=== PATIENT | female | born 1965 | race Caucasian/White ===

== ENCOUNTER → 2017-03-18 | Outpatient (CLI) | payer OTHER | LOC: BMCIMAGING 12:29 | PROVIDERS: ATTEND Obstetrics & Gynecology Gynecology | DX: Z12.31 Encounter for screening mammogram for malignant neoplasm of breast (principal) | CPT/HCPCS: G0202 ==

== ENCOUNTER 2017-03-23 12:05 | Observation (INO) | payer OTHER ==
[2017-03-23 12:10] VITALS: RESP 16
--- NOTE | 2017-03-23 12:18 | EDPHY ---
H & P Time Seen by Provider: 03/23/17 12:13 HPI/ROS: CHIEF COMPLAINT: Chest pain HISTORY OF PRESENT ILLNESS: This 51-year-old woman had cardiac stenting in her LAD 10 years ago in [place] and she described very severe chest pain at that time like "Maya March sitting on my chest." Over the past month she has been having intermittent central chest heaviness and is associated with heart pounding and feeling like when she bends over she short of breath. She does feel that it is better when she walks or when she exerts herself. It is often present in the middle of the night, and is worse in severity and frequency over the past week. REVIEW OF SYSTEMS: Eye: no change in vision ENT: no sore throat Cardiac: HPI Pulmonary: No coughing or hemoptysis Abdomen: no vomiting, diarrhea, abdominal pain Musculoskeletal: no back pain or leg pain or recent travel or immobilization Skin: no rash Neuro: no headache Constitutional: no fever : no urinary symptoms A comprehensive 10 point review of systems is otherwise negative aside from elements mentioned in the history of present illness. PAST MEDICAL HISTORY: Coronary disease as above with stenting 10 years ago and thyroid disease Social history: Nonsmoker, no recent travel General Appearance: Alert and conversant, cooperative. Eyes: No scleral icterus. ENT, Mouth: Normal mucous membranes. Respiratory: Normal respiratory effort, breath sounds equal, lungs are clear to auscultation. Cardiovascular: Regular rate and rhythm. Gastrointestinal: Abdomen is soft and non tender. Neurological: Alert and oriented x3. Normally conversant. Face symmetric, normal movement and sensation in all extremities. Skin: Warm and dry, no rashes. Musculoskeletal: No peripheral edema and no joint swelling. No calf tenderness Psychiatric: Not agitated. Emergency Department course/MDM: Patient initially went to her primary care physician's office and Dr. Zaragoza then spoke with Cardiology who advised her to come to the emergency department. Oral aspirin, EKG chest x-ray and troponin, D-dimer, cardiology consultation. 1330: Troponin D-dimer negative, Sury from Cardiology here to see and evaluate. 1412: Admission to Cardiology service for further evaluation and risk stratification per Dr. Ga. Smoking Status: Never smoked Constitutional: Initial Vital Signs Temperature (C) 36.3 C 03/23/17 12:08 Heart Rate 72 03/23/17 12:08 Respiratory Rate 16 03/23/17 12:08 Blood Pressure 117/88 H 03/23/17 12:08 O2 Sat (%) 98 03/23/17 12:08 O2 Delivery Mode Room Air Allergies/Adverse Reactions: Penicillins Allergy (Verified 03/23/17 12:07) tetracycline Allergy (Verified 03/23/17 12:07) Home Medications: Medication Instructions Recorded Aspirin 325 mg (*) 03/23/17 Synthroid 03/23/17 Medical Decision Making - Diagnostics Imaging Results: Imaging Impressions Chest X-Ray 03/23/17 12:25 Impression: No evidence of acute cardiopulmonary abnormality. Differential Diagnosis: Differential diagnosis considered for chest pain including but not limited to myocardial ischemia, aortic dissection, pericarditis, pulmonary embolus, chest wall pain, pleural inflammation and pulmonary infectious causes. - Data Points Laboratory Results: Laboratory Results 03/23/17 12:27 03/23/17 12:27 03/23/17 03/23/17 03/23/17 12:27 12:27 12:22 WBC 6.46 10^3/uL 10^3/uL (3.80-9.50) RBC 5.24 10^6/uL 10^6/uL (4.18-5.33) Hgb 15.3 g/dL g/dL (12.6-16.3) Hct 45.7 % % (38.0-47.0) MCV 87.2 fL fL (81.5-99.8) MCH 29.2 pg pg (27.9-34.1) MCHC 33.5 g/dL g/dL (32.4-36.7) RDW 13.2 % % (11.5-15.2) Plt Count 219 10^3/uL 10^3/uL (150-400) MPV 10.6 fL fL (8.7-11.7) Neut % (Auto) 55.0 % % (39.3-74.2) Lymph % (Auto) 36.8 % % (15.0-45.0) [place] % (Auto) 7.0 % % (4.5-13.0) Eos % (Auto) 0.6 % % (0.6-7.6) Baso % (Auto) 0.3 % % (0.3-1.7) Nucleat RBC Rel Count 0.0 % % (0.0-0.2) Absolute Neuts (auto) 3.55 10^3/uL 10^3/uL (1.70-6.50) Absolute Lymphs (auto) 2.38 10^3/uL 10^3/uL (1.00-3.00) Absolute Monos (auto) 0.45 10^3/uL 10^3/uL (0.30-0.80) Absolute Eos (auto) 0.04 10^3/uL 10^3/uL (0.03-0.40) Absolute Basos (auto) 0.02 10^3/uL 10^3/uL (0.02-0.10) Absolute Nucleated RBC 0.00 10^3/uL 10^3/uL (0-0.01) Immature Gran % 0.3 % % (0.0-1.1) Immature Gran # 0.02 10^3/uL 10^3/uL (0.00-0.10) D-Dimer < 0.27 ug/mLFEU ug/mLFEU (0.00-0.50) Sodium 140 mEq/L mEq/L (134-144) Potassium 3.9 mEq/L mEq/L (3.5-5.2) Chloride 105 mEq/L mEq/L (97-110) Carbon Dioxide 24 mEq/l mEq/l (22-31) Anion Gap 11 mEq/L mEq/L (8-16) BUN 12 mg/dL mg/dL (7-23) Creatinine 0.6 mg/dL mg/dL (0.6-1.0) Estimated GFR > 60 Glucose 86 mg/dL mg/dL (70-100) Calcium 9.8 mg/dL mg/dL (8.5-10.4) Troponin I < 0.012 ng/mL ng/mL (0-0.034) Medications Given: Discontinued Medications Aspirin (Aspirin) 324 mg PO EDNOW ONE Stop: 03/23/17 12:26 Last Admin: 03/23/17 12:33 Dose: 324 mg Departure - Departure Disposition: [facility] Inpatient Acute Clinical Impression: Chest pain Qualifiers: Chest pain type: unspecified Qualified Code(s): R07.9 - Chest pain, unspecified Condition: Good Instructions: Chest Pain (ED) Referrals: Hellen Zaragoza MD [Primary Care Provider] - As per Instructions Josh Ga MD [Medical Doctor] - As per Instructions
[2017-03-23] MEDS ORDERED: ASPIRIN 81 MG CHEWABLE TAB PO ONE (12:25)
--- NOTE | 2017-03-23 12:28 | CPEKG ---
Heart Rate: 69 RR Interval: 870 P-R Interval: 160 QRSD Interval: 70 QT Interval: 428 QTC Interval: 459 P [place]: 60 QRS [place]: 54 T Wave [place]: 42 EKG Severity - NORMAL ECG - EKG Impression: SINUS RHYTHM Electronically Signed By: Darien Edwards 23-Mar-2017 14:13:34
[2017-03-23 12:36] LABS: % IMMATURE GRANULYOCYTES 0.3 % (0.0-1.1); ABSOLUTE IMMATURE GRANULOCYTES 0.02 10^3/uL (0.00-0.10); ADD DIFF? NO; ADD MORPH? NO; ADD SCAN? NO; ATYPICAL LYMPHOCYTE FLAG 10 (0-99); FRAGMENT RBC FLAG 0 (0-99); HEMATOCRIT 45.7 % (38.0-47.0); HEMOGLOBIN 15.3 g/dL (12.6-16.3); LEFT SHIFT FLG 0 (0-99); LIPEMIA HEMOLYSIS FLAG 80 (0-99); MEAN CELL HEMOGLOBIN 29.2 pg (27.9-34.1); MEAN CELL HEMOGLOBIN CONCENTR. 33.5 g/dL (32.4-36.7); MEAN CELL VOLUME 87.2 fL (81.5-99.8); MEAN PLATELET VOLUME 10.6 fL (8.7-11.7); PLATELET CLUMPS FLAG 0 (0-99); PLATELET COUNT 219 10^3/uL (150-400); RED BLOOD CELL COUNT 5.24 10^6/uL (4.18-5.33); RED CELL DISTRIBUTION WIDTH 13.2 % (11.5-15.2)
[2017-03-23 12:55] LABS: ANION GAP 11 mEq/L (8-16); CALCIUM 9.8 mg/dL (8.5-10.4); CARBON DIOXIDE 24 mEq/l (22-31); CHLORIDE 105 mEq/L (97-110); CREATININE 0.6 mg/dL (0.6-1.0); GLOMERULAR FILTRATION RATE > 60; GLUCOSE 86 mg/dL (70-100); POTASSIUM 3.9 mEq/L (3.5-5.2); SODIUM 140 mEq/L (134-144)
[2017-03-23 13:07] LABS: TROPONIN I < 0.012 ng/mL (0-0.034)
--- NOTE | 2017-03-23 16:16 | GCON ---
[f rep st] CONSULTATION DATE OF CONSULTATION: 03/23/2017 CHIEF COMPLAINT: We have been asked by Dr. Edwards to evaluate this patient with a chief complaint of chest pain. HISTORY OF PRESENTING ILLNESS: The patient is a 51-year-old female with known coronary artery disea se who presents with a chief complaint of chest pain. The patient was in her usual state of health until several weeks prior to admission, when she began to experience chest pain. The chest pain is described as an emptiness in the center of her chest. It does not radiate and is not associated wit h nausea, vomiting, or diaphoresis. The patient has noted symptoms of shortness of breath when she bends over, but the shortness of breath is not clearly associated with the chest discomfort. The ch est discomfort tends to be most notable at night or when she is resting. She has not noted symptoms with eating or exertion. The patient does have a previous history of coronary artery disease and i s status post stenting of her left anterior descending coronary artery approximately 10 years ago. Her symptoms with that episode were described as a pressure in the center of her chest. The patient stated it was like Suzan March sitting on her chest. The chest discomfort was brought on with e xertion and relieved with rest. There is no history of orthopnea or PND. The patient does report i ntermittent palpitations. PAST MEDICAL HISTORY: 1. Coronary artery disease. 2. Hyperlipidemia. 3. Hypothyroidism. MEDICATIONS: 1. Aspirin. 2. Synthroid. 3. The patient reports stopping her statin several months ago. ALLERGIES: 1. Penicillin. 2. Tetracycline. SOCIAL HISTORY: The patient is from [place]. She moved to [place]. She does not smoke. FAMILY HISTORY: Noncontributory. REVIEW OF SYSTEMS: A 10-point review of systems is negative, except as noted in HPI. PHYSICAL EXAMINATION: GENERAL: Patient is resting comfortably in bed at this time. She does not a ppear to be in acute distress. VITAL SIGNS: Temperature is afebrile. Pulse is 58, blood pressure 130/71, respiratory rate is 16, SaO2 is 94% on room air. HEENT: Normocephalic, atraumatic. Extrao cular muscles intact. NECK: No JVD. No bruits. LUNGS: Clear to auscultation bilaterally. CARDI OVASCULAR: Regular rate and rhythm, S1, S2. Grade 2/6 holosystolic murmur is noted at the left ed rnal border. ABDOMEN: Soft, nontender. Normoactive bowel sounds. No hepatosplenomegaly. EXTREMI TIES: No clubbing, cyanosis, or edema. SKIN: No evidence of rashes. NEURO: Patient is awake, al ert, and oriented x3. LABORATORY: White blood cell count is 6.46, hemoglobin 15.3, hematocrit 45.7, platelet count 219. Sodium 140, potassium 3.9, chloride 105, CO2 24, BUN 12, creatinine 0.6. Troponin within normal clark its x1. D-dimer is less than 0.27. Chest x-ray demonstrates no acute cardiopulmonary disease. EKG demonstrates sinus rhythm, normal axis, normal intervals, no acute ST or T-wave changes. ASSESSMENT AND PLAN: The patient is a 51-year-old female with: 1. Chest pain. The patient presents with a chest pain syndrome. Some features are suggestive of h er previous angina, while others are not. She is currently pain-free at this time. Her EKG demonst rates no acute ST or T-wave changes. Her initial troponin is within normal limits. Reviewed option s for risk stratification including an early invasive strategy as well as a more conservative approa ch. Patient wishes to pursue the conservative approach at this time. We will admit the patient to the hospital and start on heparin. We will plan on cycling cardiac enzymes and EKGs. If the patien t remains pain-free and biomarkers are unremarkable, we will proceed with stress testing in the [facility] ing. 2. Coronary artery disease. Patient has known coronary artery disease. She is status post stentin g of her left anterior descending coronary artery approximately 10 years previously. She is current ly on medical management with aspirin therapy. We will also initiate beta-scotty therapy with Core g 3.125 mg twice daily, and consider resuming statin as noted below. 3. Hyperlipidemia. Patient does have a history of hyperlipidemia. She was previously on statin th . She recently discontinued this. We will plan on obtaining FLP and LFTs for risk stratificat ion. However, would favor starting statin therapy. /[id number]/MODL
[2017-03-23] MEDS: CARVEDILOL 3.125 MG TAB PO SCH (17:16)
[2017-03-23] MEDS ORDERED: CARVEDILOL 3.125 MG TAB PO SCH (18:00)
[2017-03-23] MEDS: ENOXAPARIN 60 MG/0.6 ML SYR SC SCH (22:03)
[2017-03-24 04:35] LABS: % IMMATURE GRANULYOCYTES 0.4 % (0.0-1.1); ABSOLUTE IMMATURE GRANULOCYTES 0.02 10^3/uL (0.00-0.10); ADD DIFF? NO; ADD MORPH? NO; ADD SCAN? NO; ATYPICAL LYMPHOCYTE FLAG 10 (0-99); FRAGMENT RBC FLAG 0 (0-99); HEMATOCRIT 41.7 % (38.0-47.0); HEMOGLOBIN 13.8 g/dL (12.6-16.3); LEFT SHIFT FLG 0 (0-99); LIPEMIA HEMOLYSIS FLAG 80 (0-99); MEAN CELL HEMOGLOBIN 29.2 pg (27.9-34.1); MEAN CELL HEMOGLOBIN CONCENTR. 33.1 g/dL (32.4-36.7); MEAN CELL VOLUME 88.2 fL (81.5-99.8); PLATELET CLUMPS FLAG 0 (0-99); PLATELET COUNT 213 10^3/uL (150-400); RED BLOOD CELL COUNT 4.73 10^6/uL (4.18-5.33); RED CELL DISTRIBUTION WIDTH 13.2 % (11.5-15.2)
[2017-03-24 04:54] LABS: ANION GAP 8 mEq/L (8-16); CALCIUM 9.5 mg/dL (8.5-10.4); CARBON DIOXIDE 26 mEq/l (22-31); CHLORIDE 108 mEq/L (97-110); CHOLESTEROL 197 mg/dL (140-220); CHOLESTEROL/HDL RATIO 2.35 RATIO (1.00-4.44); CREATININE 0.6 mg/dL (0.6-1.0); GLOMERULAR FILTRATION RATE > 60; GLUCOSE 82 mg/dL (70-100); HIGH DENSITY LIPOPROTEIN 84 mg/dL (40-85); LDL/HDL RATIO 1.15 RATIO (1.00-3.22); LOW DENSITY LIPOPROTEIN 97 mg/dL (80-100); NON-HIGH DENSITY LIPOPROTEIN 113 mg/dL (90-129); POTASSIUM 4.6 mEq/L (3.5-5.2); SODIUM 142 mEq/L (134-144); TRIGLYCERIDE 82 mg/dL (35-135); VERY LOW DENSITY LIPOPROTEINS 16 mg/dL (8-25)
[2017-03-24 05:05] LABS: TROPONIN I < 0.012 ng/mL (0-0.034)
[2017-03-24] MEDS ORDERED: ASPIRIN 81 MG CHEWABLE TAB PO SCH ×2 (09:00)
[2017-03-24] MEDS ORDERED: ATORVASTATIN CALCIUM 10 MG TAB PO SCH ×2 (09:00)
[2017-03-24] MEDS ORDERED: LEVOTHYROXINE 100 MCG TAB PO SCH (09:00)
[2017-03-24] MEDS: ENOXAPARIN 60 MG/0.6 ML SYR SC SCH (09:06)
--- NOTE | 2017-03-24 10:51 | PDCARST ---
CAR Stress Test Results Type of Stress Test: nuclear TM stress test Indication: cp/CAD Description of Procedure: was performed with standard stress test preparer electrode placement. Vital signs were monitored according to protocol throughout the procedure. STRESS EKG AND HEMODYNAMIC DATA. Exercise time: 9 min. This is equivalent to: 10.2 METS. Resting heart rate: 58 bpm. Resting blood pressure: 98/78 mmHg. Resting O2 saturation: 95%. Peak heart rate: 150bpm. This is 89% of age predicted maximum heart rate response. Peak blood pressure: 128/80 mmHg. Exercise O2: 95%. Arrhythmias:1 PVC in recovery. Reason for termination: The test was stopped due to max effort and fatigue. Symptoms: The patient experienced no typical symptoms of angina during stress or recovery. STRESS TEST ANALYSIS. Baseline ECG: SR. Stress ECG : SR. exercise induced ischemic ECG changes: No. Rhythm: rare ventricular arrhythmias noted during recovery. Blood pressure: normal blood pressure response to exercise. Exercise tolerance: The patient has normal exercise tolerance adjusted for age and gender. Symptoms: No exercise induced symptoms. Impression: IMPRESSIONS: Stress ECG for ischemia. The Henderson Treadmill Score is 9, consistent with low cardiovascular risk (<1% annual mortality). Conclusion: Await nuclear images.
[2017-03-24 11:24] VITALS: BP 97/69; PULSE 61; TEMP 97.5; O2SAT 95
[2017-03-24] MEDS: CARVEDILOL 3.125 MG TAB PO SCH (11:48)
--- NOTE | 2017-03-24 13:09 | GDS ---
[f rep st] DISCHARGE SUMMARY DISCHARGE DIAGNOSES: 1. Chest pain. Ruled out for acute coronary syndrome by enzymes and EKG, status post normal nuclea r stress test. 2. Previous coronary artery disease, status post PTCA and stenting to LAD about 10 years ago. PROCEDURES: 1. 03/23/2017, chest x-ray which shows no acute cardiopulmonary abnormality. 2. 03/24/2017, nuclear stress test with normal treadmill score, a positive 9. No evidence of myoca rdial ischemia or infarction on nuclear images. HISTORY OF PRESENT ILLNESS: Please see dictated H and P for complete details. In brief, the deven zaldivar is a 51-year-old female with a history of CAD, status post PTCA and stenting approximately 10 year s ago. She had PCI of her LAD in [place]. Over the past few years she has stopped her medical man agement as she had been feeling well. Over the past several weeks she has started to note a chest p ain described as an emptiness in the center of her chest lasting 20 minutes. This is not associated with any other symptoms. She is admitted for heparin, serial enzymes and EKG monitoring. She has ruled out and proceeded to nuclear stress test. HOSPITAL COURSE BY PROBLEM: 1. Chest pain. No evidence of ischemia on nuclear stress testing with normal exercise tolerance. 2. Dyslipidemia. Lipids were obtained and shows a total cholesterol of 197, triglycerides 82, LDL 97, HDL of 84. She is being discharged on atorvastatin 10 mg p.o. daily. She is advised to have fo llowup lipids and routine cardiologic followup. PHYSICAL EXAM: VITAL SIGNS: On day of discharge, blood pressure 97/69, heart rate of 61, respirati ons 16, O2 saturation 95%, temp of 97.5. GENERAL: She is a very pleasant female in no apparent dis tress. EYES: PERRL. HEART: Regular rate and rhythm. LUNGS: Clear to auscultation. LABORATORY DATA: BMP: Sodium 142, potassium 4.6, chloride 108, CO2 26, BUN 15, creatinine 0.6, glu cose 82. CBC with a WBC of 5.68, hemoglobin 13.8, hematocrit 41.7, platelet count 213. RESULTS PENDING: None. DIET: Cardiac diet recommended. DISCHARGE MEDICATIONS: Please see med reconciliation. She is being discharged on her home levothyr oxine. She has been started on atorvastatin 10 mg p.o. daily, and she is advised to resume aspirin 81 mg p.o. daily. DISCHARGE INSTRUCTIONS: 1. Follow up with Dr. Zaragoza. 2. Follow up with [facility], either Dr. Garza or Naila Doty PA-C, in 6 months. /[id number]/MODL
== END 2017-03-24 13:15 | disposition home or self-care (01) ==
LOC: F2W 14:50
PROVIDERS: ADMIT Internal Medicine Cardiovascular Disease; ATTEND Internal Medicine Cardiovascular Disease
DX: R07.89 Other chest pain (principal); I25.10 Atherosclerotic heart disease of native coronary artery without angina pectoris; Z95.5 Presence of coronary angioplasty implant and graft; E78.5 Hyperlipidemia, unspecified; E03.9 Hypothyroidism, unspecified
CPT/HCPCS: A9500; G0378; J1650

== ENCOUNTER → 2018-04-05 | Outpatient (CLI) | payer MEDICAID | LOC: BMCIMAGING 08:10 | PROVIDERS: ATTEND Obstetrics & Gynecology Gynecology | DX: Z12.31 Encounter for screening mammogram for malignant neoplasm of breast (principal) ==

== ENCOUNTER → 2019-04-25 | Outpatient (CLI) | payer OTHER | LOC: BMCIMAGING 07:16 ==